=== PATIENT | male | born 1990 | race Caucasian/White ===

== ENCOUNTER 2019-10-11 15:20 | Observation (INO) | payer OTHER ==
[2019-10-11 15:31] VITALS: RESP 18
[2019-10-11] MEDS ORDERED: NITROGLYCERIN OINT 1 INCH/GM PACKET TOPICAL STA ×2 (15:36→23:26)
[2019-10-11] MEDS ORDERED: ASPIRIN 81 MG PO STA (15:36)
--- NOTE | 2019-10-11 15:39 | ED ---
General Adult HPI - General Chief complaint: Chest Pain Stated complaint: Chest pain Time Seen by Provider: 10/11/19 15:33 Source: patient, RN notes reviewed Mode of arrival: ambulatory Limitations: no limitations - History of Present Illness Initial comments: Patient is a pleasant 29-year-old male presenting to the emergency Department with complaints of chest discomfort. Onset of symptoms was yesterday. Patient has had now 3 episodes. Discomfort is usually associate with exertion. Discomfort feels like tightness. Earlier today there was some radiation to the left arm. Discomfort is mild currently rated 2/10. No associated dyspnea or nausea. Patient has been diaphoretic with symptoms. - Related Data Allergies Allergy/AdvReac Type Severity Reaction Status Date / Time Penicillins Allergy Anaphylaxis Verified 10/11/19 15:25 Review of Systems ROS Statement: Those systems with pertinent positive or pertinent negative responses have been documented in the HPI. ROS Other: All systems not noted in ROS Statement are negative. Constitutional: Denies: fever Eyes: Denies: eye pain ENT: Denies: ear pain Respiratory: Denies: dyspnea Cardiovascular: Reports: chest pain Endocrine: Denies: fatigue Gastrointestinal: Denies: abdominal pain, nausea Genitourinary: Denies: dysuria Musculoskeletal: Denies: back pain Skin: Denies: rash Neurological: Denies: weakness Past Medical History Past Medical History: Hypertension History of Any Multi-Drug Resistant Organisms: None Reported Past Surgical History: Orthopedic Surgery Additional Past Surgical History / Comment(s): neck surgery and L knee Past Psychological History: No Psychological Hx Reported Smoking Status: Current every day smoker Past Alcohol Use History: Occasional Past Drug Use History: None Reported General Exam Limitations: no limitations General appearance: alert, in no apparent distress Head exam: Present: normocephalic Eye exam: Present: normal appearance, PERRL ENT exam: Present: normal oropharynx Neck exam: Present: normal inspection Respiratory exam: Present: normal lung sounds bilaterally. Absent: chest wall tenderness Cardiovascular Exam: Present: regular rate, normal rhythm Expanded Peripheral pulses: 2+: Radial (R), Radial (L), Dorsalis Pedis (R), Dorsalis Pedis (L) GI/Abdominal exam: Present: soft. Absent: distended, tenderness Extremities exam: Present: normal inspection. Absent: pedal edema, calf tenderness Neurological exam: Present: alert Psychiatric exam: Present: normal affect, normal mood Skin exam: Present: normal color Course Vital Signs 10/11/19 15:26 Temperature 98.2 F Pulse Rate 87 Respiratory 18 Rate Blood Pressure 161/82 O2 Sat by Pulse 99 Oximetry EKG Findings - EKG Comments: EKG Findings:: Sinus rhythm at 75. For screening AV block WA of 210. QRS 102. QT 368. QTC 410. Right axis. Normal QRS. No acute ischemic change. Medical Decision Making - Medical Decision Making Patient reevaluated and resting comfortably in bed. Symptoms have improved. Patient updated on results and plan. Case was discussed in detail with Dr. Ham, who will admit covered hospital call. - Lab Data Result diagrams: 10/11/19 15:46 10/11/19 15:46 Lab Results 10/11/19 10/11/19 10/11/19 Range/Units 15:46 15:46 15:46 WBC 11.0 H (3.8-10.6) k/uL RBC 5.76 (4.30-5.90) m/uL Hgb 16.3 (13.0-17.5) gm/dL Hct 48.4 (39.0-53.0) % MCV 83.9 (80.0-100.0) fL MCH 28.3 (25.0-35.0) pg MCHC 33.7 (31.0-37.0) g/dL RDW 12.7 (11.5-15.5) % Plt Count 158 (150-450) k/uL Neutrophils % 73 % Lymphocytes % 17 % Monocytes % 5 % Eosinophils % 2 % Basophils % 1 % Neutrophils # 8.0 H (1.3-7.7) k/uL Lymphocytes # 1.9 (1.0-4.8) k/uL Monocytes # 0.6 (0-1.0) k/uL Eosinophils # 0.3 (0-0.7) k/uL Basophils # 0.1 (0-0.2) k/uL PT 9.9 (9.0-12.0) sec INR 0.9 (<1.2) APTT 27.7 (22.0-30.0) sec D-Dimer 0.32 (<0.60) mg/L FEU Sodium 141 (137-145) mmol/L Potassium 4.3 (3.5-5.1) mmol/L Chloride 107 (98-107) mmol/L Carbon Dioxide 25 (22-30) mmol/L Anion Gap 9 mmol/L BUN 14 (9-20) mg/dL Creatinine 0.77 (0.66-1.25) mg/dL Est GFR (CKD-EPI)AfAm >90 (>60 ml/min/1.73 sqM) Est GFR (CKD-EPI)NonAf >90 (>60 ml/min/1.73 sqM) Glucose 103 H (74-99) mg/dL Calcium 9.6 (8.4-10.2) mg/dL Magnesium 2.1 (1.6-2.3) mg/dL Total Bilirubin 0.5 (0.2-1.3) mg/dL AST 33 (17-59) U/L ALT 35 (4-49) U/L Alkaline Phosphatase 79 (38-126) U/L Troponin I (0.000-0.034) ng/mL Total Protein 8.1 (6.3-8.2) g/dL Albumin 4.6 (3.5-5.0) g/dL 10/11/19 Range/Units 15:46 WBC (3.8-10.6) k/uL RBC (4.30-5.90) m/uL Hgb (13.0-17.5) gm/dL Hct (39.0-53.0) % MCV (80.0-100.0) fL MCH (25.0-35.0) pg MCHC (31.0-37.0) g/dL RDW (11.5-15.5) % Plt Count (150-450) k/uL Neutrophils % % Lymphocytes % % Monocytes % % Eosinophils % % Basophils % % Neutrophils # (1.3-7.7) k/uL Lymphocytes # (1.0-4.8) k/uL Monocytes # (0-1.0) k/uL Eosinophils # (0-0.7) k/uL Basophils # (0-0.2) k/uL PT (9.0-12.0) sec INR (<1.2) APTT (22.0-30.0) sec D-Dimer (<0.60) mg/L FEU Sodium (137-145) mmol/L Potassium (3.5-5.1) mmol/L Chloride (98-107) mmol/L Carbon Dioxide (22-30) mmol/L Anion Gap mmol/L BUN (9-20) mg/dL Creatinine (0.66-1.25) mg/dL Est GFR (CKD-EPI)AfAm (>60 ml/min/1.73 sqM) Est GFR (CKD-EPI)NonAf (>60 ml/min/1.73 sqM) Glucose (74-99) mg/dL Calcium (8.4-10.2) mg/dL Magnesium (1.6-2.3) mg/dL Total Bilirubin (0.2-1.3) mg/dL AST (17-59) U/L ALT (4-49) U/L Alkaline Phosphatase (38-126) U/L Troponin I <0.012 (0.000-0.034) ng/mL Total Protein (6.3-8.2) g/dL Albumin (3.5-5.0) g/dL - Radiology Data Radiology results: image reviewed (Chest x-ray shows no acute process) Disposition Clinical Impression: Chest pain Disposition: ADMITTED IP TO THIS HOSP Is patient prescribed a controlled substance at d/c from ED?: No Referrals: None,Stated [Primary Care Provider] - 1-2 days Decision Time: 16:45
[2019-10-11 15:56] LABS: Basophils # (A) 0.1 k/uL (0-0.2); Basophils % (A) 1 %; Eosinophils # (A) 0.3 k/uL (0-0.7); Eosinophils % (A) 2 %; HCT 48.4 % (39.0-53.0); HGB 16.3 gm/dL (13.0-17.5); Lymphocytes # (A) 1.9 k/uL (1.0-4.8); Lymphocytes % (A) 17 %; MCH 28.3 pg (25.0-35.0); MCHC 33.7 g/dL (31.0-37.0); MCV 83.9 fL (80.0-100.0); Mean Platelet Volume 9.6; Monocytes # (A) 0.6 k/uL (0-1.0); Monocytes % (A) 5 %; Neutrophils % (A) 73 %; Platelet Count 158 k/uL (150-450); RBC 5.76 m/uL (4.30-5.90); RDW 12.7 % (11.5-15.5)
--- NOTE | 2019-10-11 16:02 | XR ---
EXAMINATION TYPE: XR chest 2V DATE OF EXAM: 10/11/2019 COMPARISON: NONE HISTORY: Chest pain since yesterday. Pain down left arm. TECHNIQUE: Frontal and lateral views of the chest are obtained. FINDINGS: Overlying EKG leads are seen. Somewhat low lung volumes. There is no focal air space opacit y, pleural effusion, or pneumothorax seen. The cardiac silhouette size is within normal limits. Th e osseous structures are intact. IMPRESSION: No acute cardiopulmonary process.
[2019-10-11 16:04] LABS: ALT 35 U/L (4-49); AST 33 U/L (17-59); African American GFR (CKD) >90 (>60 ml/min/1.73 sqM); Albumin 4.6 g/dL (3.5-5.0); Alkaline Phosphatase 79 U/L (38-126); Anion Gap 9 mmol/L; Blood Urea Nitrogen 14 mg/dL (9-20); Calcium 9.6 mg/dL (8.4-10.2); Carbon Dioxide 25 mmol/L (22-30); Chloride 107 mmol/L (98-107); Glucose 103 mg/dL (74-99); Magnesium 2.1 mg/dL (1.6-2.3); Non-African American GFR(CKD) >90 (>60 ml/min/1.73 sqM); Potassium 4.3 mmol/L (3.5-5.1); Sodium 141 mmol/L (137-145); Total Bilirubin 0.5 mg/dL (0.2-1.3); Total Protein 8.1 g/dL (6.3-8.2)
[2019-10-11 16:24] LABS: D-Dimer 0.32 mg/L FEU (<0.60); INR 0.9 (<1.2); Partial Thromboplastin Time 27.7 sec (22.0-30.0); Prothrombin Time 9.9 sec (9.0-12.0)
[2019-10-11] MEDS ORDERED: NITROGLYCERIN SL TABS 0.4 MG TAB SUBLINGUAL PRN (16:46)
[2019-10-11] MEDS ORDERED: ACETAMINOPHEN TAB 325 MG TAB PO PRN (17:32)
[2019-10-11] MEDS ORDERED: NALOXONE 0.4 MG/ML 1 ML VIAL IV PRN (17:32)
--- NOTE | 2019-10-11 17:39 | P.HPIM ---
History of Present Illness H&P Date: 10/11/19 Chief Complaint: Chest pain 29-year-old male, smoker with no past medical history presenting to the emergency Department with complaints of chest discomfort. Onset of symptoms was yesterday. Patient has had now 3 episodes. When it started it occurred with exertion but last night he had one episode when he was resting. Pain is sharp, feels like a needle in the left chest. Earlier today there was some radiation to the left arm. Discomfort is mild currently rated 2/10. No associated dyspnea or nausea. Patient has been diaphoretic with symptoms. Never had this type of chest pain before. 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 Evaluation in the emergency department revealed negative troponin, EKG unr emarkable. Patient was admitted for further monitoring and evaluation by cardiology. Review of Systems Complete review of system performed, pertinent positive for HPI, otherwise negative Past Medical History Past Medical History: Hypertension History of Any Multi-Drug Resistant Organisms: None Reported Past Surgical History: Orthopedic Surgery Additional Past Surgical History / Comment(s): neck surgery and L knee Past Psychological History: No Psychological Hx Reported Smoking Status: Current every day smoker Past Alcohol Use History: Occasional Past Drug Use History: None Reported Medications and Allergies Home Medications Medication Instructions Recorded Confirmed Type No Known Home Medications 10/11/19 10/11/19 History Allergies Allergy/AdvReac Type Severity Reaction Status Date / Time Penicillins Allergy Anaphylaxis Verified 10/11/19 16:49 Physical Exam Vitals: Vital Signs Temp Pulse Resp BP Pulse Ox 10/11/19 15:26 98.2 F 87 18 161/82 99 Intake and Output 10/11/19 10/11/19 10/11/19 06:59 14:59 22:59 Other: Weight 147.418 kg Constitutional: No acute distress, conversant, pleasant Eyes:Anicteric sclerae, moist conjunctiva, no lid-lag, PERRLA, ENMT: Oropharynx clear, no erythema, exudates Neck: Supple, FROM, no masses, or JVD, No carotid bruits, No thyromegaly Lungs: Clear to auscultation, Clear to percussion, Normal respiratory effort, no accessory muscle use Cardiovascular: Heart regular in rate and rhythm, No murmurs, gallops, or rubs, No peripheral edema Abdominal: Soft, Nontender, no guarding, rebound or rigidity, Normoactive bowel sounds, No hepatomegaly, No splenomegaly, No palpable mass Skin: Normal temperature, tone, texture, turgor, no induration, No subcutaneous nodules, No rash, lesions, No ulcers Extremities: No digital cyanosis, No clubbing, Pedal pulses intact and symmetrical, Radial pulses intact and symmetrical, No calf tenderness Psychiatric: Alert and oriented to person, place and time, appropriate affect, intact judgement Neuro: Muscles Strength 5/5 in all 4 extremities, Sensation to light touch yisel ssly present throughout, Cranial nerves II-XII grossly intact, no focal sensory deficits Results CBC & Chem 7: 10/11/19 15:46 10/11/19 15:46 Labs: Abnormal Lab Results - Last 24 Hours (Table) 10/11/19 10/11/19 Range/Units 15:46 15:46 WBC 11.0 H (3.8-10.6) k/uL Neutrophils # 8.0 H (1.3-7.7) k/uL Glucose 103 H (74-99) mg/dL Assessment and Plan Plan: Acute chest pain Admit to observation Telemetry Cycle troponins Consult cardiology Smoking Patient advised to quit Patient admitted to observation, expected length of stay less than 2 midnights
[2019-10-11] MEDS ORDERED: INFLUENZA VACCINE (6 MOS+) 60 MCG/0.5 ML SYRINGE IM ONE (17:53)
[2019-10-11] MEDS: NITROGLYCERIN OINT 1 INCH/GM PACKET TOPICAL SCH ×2 (23:03→23:26)
[2019-10-12 04:51] LABS: Basophils % (A) 0 %; Eosinophils # (A) 0.2 k/uL (0-0.7); Eosinophils % (A) 2 %; HCT 46.1 % (39.0-53.0); HGB 15.5 gm/dL (13.0-17.5); Lymphocytes # (A) 2.4 k/uL (1.0-4.8); Lymphocytes % (A) 26 %; MCH 28.4 pg (25.0-35.0); MCHC 33.6 g/dL (31.0-37.0); MCV 84.5 fL (80.0-100.0); Mean Platelet Volume 9.2; Monocytes # (A) 0.5 k/uL (0-1.0); Monocytes % (A) 6 %; Neutrophils # (A) 5.7 k/uL (1.3-7.7); Neutrophils % (A) 63 %; Platelet Count 161 k/uL (150-450); RBC 5.45 m/uL (4.30-5.90); RDW 12.7 % (11.5-15.5); WBC 9.1 k/uL (3.8-10.6)
[2019-10-12 05:02] LABS: African American GFR (CKD) >90 (>60 ml/min/1.73 sqM); Anion Gap 7 mmol/L; Blood Urea Nitrogen 14 mg/dL (9-20); Calcium 9.2 mg/dL (8.4-10.2); Carbon Dioxide 27 mmol/L (22-30); Chloride 104 mmol/L (98-107); Glucose 84 mg/dL (74-99); Non-African American GFR(CKD) >90 (>60 ml/min/1.73 sqM); Phosphorus 4.1 mg/dL (2.5-4.5); Potassium 4.2 mmol/L (3.5-5.1); Sodium 138 mmol/L (137-145)
[2019-10-12 05:42] LABS: Cholesterol 216 mg/dL (<200); HDL Cholesterol 39 mg/dL (40-60); LDL Cholesterol,Calculated 146 mg/dL (0-99); Triglycerides 156 mg/dL (<150)
[2019-10-12] MEDS: NITROGLYCERIN OINT 1 INCH/GM PACKET TOPICAL SCH (07:18)
[2019-10-12] MEDS ORDERED: ASPIRIN 325 MG TAB PO SCH (09:00)
--- NOTE | 2019-10-12 09:49 | P.CRDCN ---
History of Present Illness History of present illness: HISTORY OF PRESENTING ILLNESS This is a pleasant 29-year-old male past medical history significant for hypertension, dyslipidemia and chronic nicotine dependence. He denies prior history of coronary artery disease and does not follow in the office with a senior trainer. We have been asked to see in consultation for chest pain. He states on Wednesday night while at work he started experiencing a discomfort across his chest in the left precordial region and down the left side of his torso. He also experienced a numb tingling sensation down his left arm and into his left hand. His symptoms initially lasted for about 30 minutes and subsided on their own. He went to bed that night feeling in his usual state of health. He woke up yesterday morning having ongoing chest discomfort associated with some shortness of breath. His symptoms are not exacerbated by activity or exe rtion. The discomfort is not reproducible. He denies cough, fever or chills. Through the night he again had an episode of chest discomfort after eating. Currently chest pain-free. DIAGNOSTICS EKG reveals sinus mechanism, first-degree AV block with nonspecific changes. Chest xray negative for acute cardiopulmonary process. Laboratory reviewed, WBC on admission 11 repeat today 9.1, hemoglobin 15.5, platelets 161, d-dimer 0.32, sodium 138, potassium 4.2, creatinine 0.79, magnesium 2.1, cardiac enzymes negative 3, LDL 146, HDL 39. He takes no daily cardiac medications. He states he has been off of antihypertensives for the previous 10 years. REVIEW OF SYSTEMS At the time of my exam: CONSTITUTIONAL: Denies fever or chills. CARDIOVASCULAR: Denies chest pain, shortness of breath, orthopnea, PND or palpitations. RESPIRATORY: Denies cough. GASTROINTESTINAL: Denies abdominal pain, diarrhea, constipation, nausea or vomiting. MUSCULOSKELETAL: Denies myalgias. NEUROLOGIC: Denies numbness, tingling or weakness. ENDOCRINE: Denies fatigue, weight change, polydipsia or polyurina. GENITOURINARY: Denies burning, hematuria or urgency with micturation. HEMATOLOGIC: Denies history of anemia or bleeding. PHYSICAL EXAMINATION Blood pressure 144/82 heart rate 62 afebrile and maintaining oxygen saturation on room air. CONSTITUTIONAL: No apparent distress. Obese. HEENT: Head is normocephalic. Pupils are equal, round. Sclerae anicteric. Mucous membranes of the mouth are moist. No JVD. No carotid bruit. CHEST EXAMINATION: Lungs are clear to auscultation. No chest wall tenderness is noted on palpation or with deep breathing. HEART EXAMINATION: Regular rate and rhythm. S1, S2 heard. No murmurs, gallops or rub. ABDOMEN: Soft, nontender. Positive bowel sounds. EXTREMITIES: 2+ peripheral pulses, no lower extremity edema and no calf tenderness. NEUROLOGIC EXAMINATION: Patient is awake, alert and oriented x3. ASSESSMENT Chest pain, atypical. Dyslipidemia Chronic nicotine dependence Morbid obesity, BMI 41 PLAN An acute coronary event has been ruled out. Given his risk factor profile and ongoing chest discomfort we recommend proceeding with stress echocardiogram to assess for stress-induced ischemia. Lifestyle modifications recommended in the form of diet and exercise for lower ing of LDL cholesterol as well as overall weight loss. Smoking cessation highly recommended. If his stress test is normal he may be discharged from a cardiac perspective. Thank you kindly for this consultation. Nurse Practitioner note has been reviewed, I agree with a documented findings and plan of care. Patient was seen and examined. Past Medical History Past Medical History: Hypertension History of Any Multi-Drug Resistant Organisms: None Reported Past Surgical History: Orthopedic Surgery Additional Past Surgical History / Comment(s): neck surgery and L knee Past Anesthesia/Blood Transfusion Reactions: No Reported Reaction Additional Past Anesthesia/Blood Transfusion Reaction / Comment(s): recieved blood when he was younger- no issues, Past Psychological History: No Psychological Hx Reported Smoking Status: Current every day smoker Past Alcohol Use History: Occasional Past Drug Use History: None Reported Medications and Allergies Home Medications Medication Instructions Recorded Confirmed Type No Known Home Medications 10/11/19 10/11/19 History Allergies Allergy/AdvReac Type Severity Reaction Status Date / Time Penicillins Allergy Anaphylaxis Verified 10/11/19 16:49 Physical Exam Vitals: Vital Signs Temp Pulse Pulse Resp BP BP BP 10/12/19 07:29 98.1 F 62 18 144/82 10/12/19 04:00 98.2 F 69 18 131/81 10/12/19 03:30 18 10/11/19 23:41 98.3 F 76 18 143/84 10/11/19 23:10 18 10/11/19 19:26 98.1 F 66 18 132/76 10/11/19 19:20 18 10/11/19 17:44 98.8 F 65 150/74 10/11/19 17:10 98.1 F 68 18 133/71 10/11/19 15:26 98.2 F 87 18 161/82 Pulse Ox 10/12/19 07:29 96 10/12/19 04:00 97 10/12/19 03:30 10/11/19 23:41 97 10/11/19 23:10 10/11/19 19:26 97 10/11/19 19:20 10/11/19 17:44 97 10/11/19 17:10 99 10/11/19 15:26 99 Intake and Output 10/11/19 10/12/19 10/12/19 22:59 06:59 14:59 Intake Total 240 240 Balance 240 240 Intake: Oral 240 240 Other: # Voids 1 Weight 147.418 kg Results 10/12/19 04:36 10/12/19 04:36 Cardiac Enzymes 10/11/19 10/11/19 10/11/19 Range/Units 15:46 15:46 21:59 AST 33 (17-59) U/L Troponin I <0.012 <0.012 (0.000-0.034) ng/mL 10/12/19 Range/Units 04:36 AST (17-59) U/L Troponin I <0.012 (0.000-0.034) ng/mL Coagulation 10/11/19 Range/Units 15:46 PT 9.9 (9.0-12.0) sec APTT 27.7 (22.0-30.0) sec Lipids 10/12/19 Range/Units 04:36 Triglycerides 156 H (<150) mg/dL Cholesterol 216 H (<200) mg/dL HDL Cholesterol 39 L (40-60) mg/dL CBC 10/11/19 10/12/19 Range/Units 15:46 04:36 WBC 11.0 H 9.1 (3.8-10.6) k/uL RBC 5.76 5.45 (4.30-5.90) m/uL Hgb 16.3 15.5 (13.0-17.5) gm/dL Hct 48.4 46.1 (39.0-53.0) % Plt Count 158 161 (150-450) k/uL Comprehensive Metabolic Panel 10/11/19 10/12/19 Range/Units 15:46 04:36 Sodium 141 138 (137-145) mmol/L Potassium 4.3 4.2 (3.5-5.1) mmol/L Chloride 107 104 (98-107) mmol/L Carbon Dioxide 25 27 (22-30) mmol/L BUN 14 14 (9-20) mg/dL Creatinine 0.77 0.79 (0.66-1.25) mg/dL Glucose 103 H 84 (74-99) mg/dL Calcium 9.6 9.2 (8.4-10.2) mg/dL AST 33 (17-59) U/L ALT 35 (4-49) U/L Alkaline Phosphatase 79 (38-126) U/L Total Protein 8.1 (6.3-8.2) g/dL Albumin 4.6 (3.5-5.0) g/dL Current Medications Generic Name Dose Route Start Last Admin Trade Name Freq PRN Reason Stop Dose Admin Acetaminophen 650 mg 10/11/19 17:32 Tylenol Tab PO Q6HR PRN Mild Pain or Fever > 100.5 Aspirin 325 mg 10/12/19 09:00 Aspirin PO DAILY BLOSSOM Naloxone HCl 0.2 mg 10/11/19 17:32 Narcan IV Q2M PRN Opioid Reversal Nitroglycerin 0.4 mg 10/11/19 16:46 Nitrostat SUBLINGUAL Q5M PRN Chest Pain Nitroglycerin 1 inch 10/11/19 22:00 10/12/19 07:18 Nitro-Bid Oint TOPICAL Not Given Q6HR BLOSSOM Sodium Chloride 10 ml 10/11/19 21:00 10/11/19 20:40 Saline Flush IV 10 ml BID BLOSSOM Administration Intake and Output 10/11/19 10/12/19 10/12/19 22:59 06:59 14:59 Intake Total 240 240 Balance 240 240 Intake: Oral 240 240 Other: # Voids 1 Weight 147.418 kg 10/12/19 04:36 10/12/19 04:36
--- NOTE | 2019-10-12 12:37 | ECHOS ---
STRESS ECHOCARDIOGRAM INDICATIONS: Chest pain. MEDICATIONS: BASELINE HEART RATE: 69 BASELINE BLOOD PRESSURE: 157/88 MAXIMUM HEART RATE: 176 MAXIMUM BLOOD PRESSURE: 215/60 85% MPHR: 161 100% MPHR: 189 METS: 11.1 MAXIMUM STAGE REACHED: III TOTAL EXERCISE TIME: 9 minutes CLINICAL INFORMATION: STRESS DATA: Heart rate 69, pressure is 157/88 mmHg. Baseline EKG showed sinus rhythm. The patient exercised on the treadmill according to Epi protocol for a total of 9 minutes and achieved 11.1 METs. Max heart rate was 176, which is about 93% of maximum predicted heart rate. Maximum blood pressure was 215/60 mmHg. Clinically the patient did not have any symptoms of chest pain or chest discomfort and the EKG did not show any significant ST or T-wave abnormalities concerning for ischemia. ECHOCARDIOGRAM IMAGES: On echocardiogram images from parasternal long axis view, parasternal short axis view, apical 4 chamber and apical 2 chambers were obtained as the baseline images, at the peak of the heart rate as well as on recovery and the echocardiogram images showed good augmentation in the left ventricular systolic function. CONCLUSION: 1. Excellent exercise tolerance. 2. Normal EKG in response to exercise. 3. Normal echocardiogram in response to exercise. MMODL / IJN: [id number] /
[2019-10-12 13:15] VITALS: BP 149/68; PULSE 86; TEMP 98.3
--- NOTE | 2019-10-12 13:55 | P.DS ---
Providers Date of admission: 10/11/19 16:46 Expected date of discharge: 10/12/19 Attending physician: Kenny Blake MD Consults: 10/11/19 16:46 Consult Physician Urgent Consulting Provider: Trevor Pollard Consult Reason/Comments: cp Do you want consulting provider notified?: Yes Primary care physician: Stated None Hospital Course: 29-year-old male, smoker with no past medical history presenting to the emergency Department with complaints of chest discomfort. Onset of symptoms was yesterday. Patient has had now 3 episodes. When it started it occurred with exertion but last night he had one episode when he was resting. Pain is sharp, feels like a needle in the left chest. Earlier today there was some radiation to the left arm. Discomfort is mild currently rated 2/10. No associated dyspnea or nausea. Patient has been diaphoretic with symptoms. Never had this type of chest pain before. 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 Evaluation in the emergency department revealed a slightly elevated blood pressure 140-150 systolic over 70-80 diastolic. Labs revealed negative troponin, EKG unremarkable. Patient was admitted for further monitoring and evaluation by cardiology. Troponin was cycled and it remained negative. Lipid panel consistent with elevated LDL at 146, low HDL at 39. Patient underwent stress echocardiogram this morning which came back negative for signs of ischemia. Patient was cleared by cardiology for discharge. He did not have any recurrent chest pain. He was told to follow-up with cardiology's office to check on his blood pressure is he needs treatment. He was advised to quit smoking. Patient was discharged home in a stable condition. Plan - Discharge Summary Discharge Rx Participant: No New Discharge Prescriptions: No Action No Known Home Medications Discharge Medication List No Known Home Medications 10/11/19 [History] Follow up Appointment(s)/Referral(s): Trevor Pollard MD [STAFF PHYSICIAN] - 10/23/19 10:00 am None,Stated [Primary Care Provider] - 1-2 days Patient Instructions/Handouts: Chest Pain (DC), Low Fat Diet (DC), Heart Healthy Diet (DC), Hyperlipidemia (DC), Mediterranean Diet (DC)
== END 2019-10-12 14:37 ==
LOC: EC 15:20 → 1SOBS 16:46
PROVIDERS: ADMIT Family Medicine; ATTEND Family Medicine
DX: R07.9 Chest pain, unspecified (principal); I10 Essential (primary) hypertension; E78.5 Hyperlipidemia, unspecified; I44.0 Atrioventricular block, first degree; F17.200 Nicotine dependence, unspecified, uncomplicated; Z23 Encounter for immunization; E66.01 Morbid (severe) obesity due to excess calories; Z68.41 Body mass index [BMI] 40.0-44.9, adult; Z88.0 Allergy status to penicillin
CPT/HCPCS: 93005 ×2; 99285; 36415; 93351; 85379; 80061; 80053; 80048; 83735 ×2; 84100; 84484 ×2; 85025 ×2; 85610; 85730; 71046; 90686; G0378 ×2; G0008